=== PATIENT | female | born 1980 | race African-American/Black ===

== ENCOUNTER 2021-06-06 03:42 | Emergency (ER) | payer SELFPAY ==
[2021-06-06] MEDS ORDERED: Sodium Chloride 0.9% 2.5 ML Syringe FLUSH PRN (04:14)
[2021-06-06] MEDS ORDERED: Sodium Chloride 0.9% 10 ML Syringe FLUSH PRN (04:14)
[2021-06-06] MEDS ORDERED: Ondansetron 4 MG/2 ML SDV IVPUSH ONE (04:16)
[2021-06-06] MEDS ORDERED: Morphine 4 MG/ML VIAL IVPUSH ONE (04:16)
--- NOTE | 2021-06-06 04:38 | EDM.PDOC ---
ED HPI GENERAL MEDICAL PROBLEM - General Chief Complaint: Gastrointestinal Problem Stated Complaint: STOMACHE PAINS Time Seen by Provider: 06/06/21 03:52 - History of Present Illness INITIAL COMMENTS - FREE TEXT/NARRATIVE: 41-year-old female with no significant past medical history no prior surgical history is presenting with 1 week of gradually worsening abdominal pain. The pain started in the epigastrium and is now migrated to the right upper quadrant with some radiation to the right flank it is constant and currently 7 out of 10 it worsens with any p.o. intake. Few days ago it was associated with emesis however that is no longer the case however, she also was not had very much to eat over the last couple days. She reports chills but no documented fevers no diarrhea and no alleviating factors. She denies cough or shortness of breath. Right Abdominal Pain Score (Numeric/FACES): 7 - Related Data Allergies Allergy/AdvReac Type Severity Reaction Status Date / Time No Known Allergies Allergy Verified 06/06/21 03:51 Home Meds: Home Meds RX: Omeprazole 40 mg PO DAILY 14 Days #14 capsule. 06/06/21 [Rx] Sucralfate [Carafate] 1 gm PO TIDAC 14 Days #42 tablet 06/06/21 [Rx] Past Medical History - Past Health History Medical/Surgical History: Denies Medical/Surgical History Social & Family History - Tobacco Use Tobacco Use Status *Q: Never Tobacco User - Recreational Drug Use Recreational Drug Use: No ED ROS GENERAL - Review of Systems Review Of Systems: See Below Free Text/Narrative/Comment: General: No fever. Skin: No rash. Eyes: No vision problems. ENT: No sore throat. Neck: No neck stiffness. Respiratory: No shortness of breath. Cardiac: No chest pain. Gastrointestinal: Per HPI Urinary: No dysuria. Musculoskeletal: No myalgias/arthralgias. Neurologic: No headache. ED EXAM, GENERAL - Physical Exam Exam: See Below Free Text/Narrative:: General Appearance: No acute distress, appears comfortable Skin: No rash HEENT: Normocephalic/atraumatic, sclera anicteric, mucous membranes moist Neck: Normal range of motion Chest and Lungs: Bilateral breath sounds, clear to auscultation Cardiovascular: Regular rate and rhythm, no murmur Abdomen: Soft, right upper quadrant tenderness no guarding or rebound Back: Normal Musculoskeletal: No edema or tenderness Neurologic: Awake, alert, no obvious deficits, moving all extremities Psychiatric: Appropriate, cooperative Course - Vital Signs Last Recorded V/S: Last Vital Signs Temp 95.8 F L 06/06/21 03:51 Pulse 92 06/06/21 06:18 Resp 18 06/06/21 06:18 BP 105/59 L 06/06/21 06:18 Pulse Ox 96 06/06/21 06:18 - Orders/Labs/Meds Orders: Active Orders 24 hr Category Date Time Status Sodium Chloride 0.9% [Saline Flush] Med 06/06/21 04:14 Active 10 ml FLUSH ASDIRECTED PRN Sodium Chloride 0.9% [Saline Flush] Med 06/06/21 04:14 Active 2.5 ml FLUSH ASDIRECTED PRN Saline Lock Insert [OM.PC] Stat Oth 06/06/21 04:14 Ordered Medication Orders Sodium Chloride (Sodium Chloride 0.9% 10 Ml Syringe) 10 ml FLUSH ASDIRECTED PRN PRN Reason: Keep Vein Open Sodium Chloride (Sodium Chloride 0.9% 2.5 Ml Syringe) 2.5 ml FLUSH ASDIRECTED PRN PRN Reason: Keep Vein Open Labs: Laboratory Tests 06/06/21 06/06/21 06/06/21 Range/Units 04:00 04:00 04:00 WBC 6.91 (4.0-11.0) K/uL RBC 4.69 (4.30-5.90) M/uL Hgb 14.0 (12.0-16.0) g/dL Hct 41.2 (36.0-46.0) % MCV 87.8 (80.0-98.0) fL MCH 29.9 (27.0-32.0) pg MCHC 34.0 (31.0-37.0) g/dL RDW Std Deviation 44.0 (28.0-62.0) fl RDW Coeff of Ladarius 14 (11.0-15.0) % Plt Count 288 (150-400) K/uL MPV 10.80 (7.40-12.00) fL Neut % (Auto) 57.8 (48.0-80.0) % Lymph % (Auto) 31.7 (16.0-40.0) % [place] % (Auto) 8.8 (0.0-15.0) % Eos % (Auto) 1.4 (0.0-7.0) % Baso % (Auto) 0.3 (0.0-1.5) % Neut # (Auto) 4.0 (1.4-5.7) K/uL Lymph # (Auto) 2.2 (0.6-2.4) K/uL [place] # (Auto) 0.6 (0.0-0.8) K/uL Eos # (Auto) 0.1 (0.0-0.7) K/uL Baso # (Auto) 0.0 (0.0-0.1) K/uL Nucleated RBC % 0.0 /100WBC Nucleated RBCs # 0 K/uL Sodium 134 L (136-145) mmol/L Potassium 4.4 (3.5-5.1) mmol/L Chloride 98 (98-107) mmol/L Carbon Dioxide 26.2 (21.0-32.0) mmol/L BUN 5 L (7.0-18.0) mg/dL Creatinine 0.9 (0.6-1.0) mg/dL Est Cr Clr Drug Dosing 57.89 mL/min Estimated GFR (MDRD) > 60.0 ml/min Glucose 430 H (74-106) mg/dL Calcium 8.7 (8.5-10.1) mg/dL Total Bilirubin 0.5 (0.2-1.0) mg/dL AST 15 (15-37) IU/L ALT 15 (14-63) IU/L Alkaline Phosphatase 128 H (46-116) U/L Total Protein 8.4 H (6.4-8.2) g/dL Albumin 3.4 (3.4-5.0) g/dL Globulin 5.0 H (2.6-4.0) g/dL Albumin/Globulin Ratio 0.7 L (0.9-1.6) Lipase 92 (73-393) U/L Urine Color Urine Appearance Urine pH (5.0-8.0) Ur Specific Ferris (1.001-1.035) Urine Protein (NEGATIVE) mg/dL Urine Glucose (UA) (NEGATIVE) mg/dL Urine Ketones (NEGATIVE) mg/dL Urine Occult Blood (NEGATIVE) Urine Nitrite (NEGATIVE) Urine Bilirubin (NEGATIVE) Urine Urobilinogen (<2.0) EU/dL Ur Leukocyte Esterase (NEGATIVE) Urine RBC (0-2/HPF) Urine WBC (0-5/HPF) Ur Epithelial Cells (NONE-FEW) Urine Bacteria (NEGATIVE) Urine Yeast Urine HCG, Qual NEGATIVE (NEGATIVE) 06/06/21 Range/Units 04:00 WBC (4.0-11.0) K/uL RBC (4.30-5.90) M/uL Hgb (12.0-16.0) g/dL Hct (36.0-46.0) % MCV (80.0-98.0) fL MCH (27.0-32.0) pg MCHC (31.0-37.0) g/dL RDW Std Deviation (28.0-62.0) fl RDW Coeff of Ladarius (11.0-15.0) % Plt Count (150-400) K/uL MPV (7.40-12.00) fL Neut % (Auto) (48.0-80.0) % Lymph % (Auto) (16.0-40.0) % [place] % (Auto) (0.0-15.0) % Eos % (Auto) (0.0-7.0) % Baso % (Auto) (0.0-1.5) % Neut # (Auto) (1.4-5.7) K/uL Lymph # (Auto) (0.6-2.4) K/uL [place] # (Auto) (0.0-0.8) K/uL Eos # (Auto) (0.0-0.7) K/uL Baso # (Auto) (0.0-0.1) K/uL Nucleated RBC % /100WBC Nucleated RBCs # K/uL Sodium (136-145) mmol/L Potassium (3.5-5.1) mmol/L Chloride (98-107) mmol/L Carbon Dioxide (21.0-32.0) mmol/L BUN (7.0-18.0) mg/dL Creatinine (0.6-1.0) mg/dL Est Cr Clr Drug Dosing mL/min Estimated GFR (MDRD) ml/min Glucose (74-106) mg/dL Calcium (8.5-10.1) mg/dL Total Bilirubin (0.2-1.0) mg/dL AST (15-37) IU/L ALT (14-63) IU/L Alkaline Phosphatase (46-116) U/L Total Protein (6.4-8.2) g/dL Albumin (3.4-5.0) g/dL Globulin (2.6-4.0) g/dL Albumin/Globulin Ratio (0.9-1.6) Lipase (73-393) U/L Urine Color YELLOW Urine Appearance CLEAR Urine pH 6.0 (5.0-8.0) Ur Specific Ferr[place] 1.015 (1.001-1.035) Urine Protein NEGATIVE (NEGATIVE) mg/dL Urine Glucose (UA) >=1000 (NEGATIVE) mg/dL Urine Ketones 15 H (NEGATIVE) mg/dL Urine Occult Blood NEGATIVE (NEGATIVE) Urine Nitrite NEGATIVE (NEGATIVE) Urine Bilirubin NEGATIVE (NEGATIVE) Urine Urobilinogen 0.2 (<2.0) EU/dL Ur Leukocyte Esterase NEGATIVE (NEGATIVE) Urine RBC 0-1 (0-2/HPF) Urine WBC 1-3 (0-5/HPF) Ur Epithelial Cells MODERATE (NONE-FEW) Urine Bacteria OCCASIONAL (NEGATIVE) Urine Yeast FEW Urine HCG, Qual (NEGATIVE) Meds: Medications Generic Name Dose Route Start Last Admin Trade Name Freq PRN Reason Stop Dose Admin Sodium Chloride 10 ml 06/06/21 04:14 Sodium Chloride 0.9% 10 Ml Syringe FLUSH ASDIRECTED PRN Keep Vein Open Sodium Chloride 2.5 ml 06/06/21 04:14 Sodium Chloride 0.9% 2.5 Ml Syringe FLUSH ASDIRECTED PRN Keep Vein Open Discontinued Medications Generic Name Dose Route Start Last Admin Trade Name Freq PRN Reason Stop Dose Admin Iopamidol 100 ml 06/06/21 05:32 06/06/21 05:36 Iopamidol 755 Mg/Ml 100 Ml Bottle IVPUSH 06/06/21 05:33 100 ml ONETIME ONE Administration Morphine Sulfate 4 mg 06/06/21 04:16 06/06/21 04:24 Morphine 4 Mg/Ml Vial IVPUSH 06/06/21 04:17 4 mg ONETIME ONE Administration Ondansetron HCl 4 mg 06/06/21 04:16 06/06/21 04:24 Ondansetron 4 Mg/2 Ml Sdv IVPUSH 06/06/21 04:17 4 mg ONETIME ONE Administration Departure - Departure Time of Disposition: 06:42 Disposition: Home, Self-Care 01 Condition: Good Clinical Impression: Gastritis - Discharge Information *PRESCRIPTION DRUG MONITORING PROGRAM REVIEWED*: Not Applicable *COPY OF PRESCRIPTION DRUG MONITORING REPORT IN PATIENT SHOSHANA: Not Applicable Prescriptions: Sucralfate [Carafate] 1 gm PO TIDAC 14 Days #42 tablet RX: Omeprazole 40 mg PO DAILY 14 Days #14 capsule.dr Instructions: Gastritis, Adult, [id number] Forms: ED Department Discharge Additional Instructions: Your labs today showed no abnormalities with your liver your kidneys or any sign of infection. The ultrasound and CT were also normal. For this reason I believe your symptoms are most likely due to stomach irritation. For the next 2 weeks please take the omeprazole at least 30 to 40 minutes before breakfast every day. Please take the Carafate on an empty stomach immediately prior to any major meal. This should help give your stomach lining time to heal. I encourage you to follow-up with one of the primary clinics in [facility] both for this problem and to establish primary care. If your symptoms worsen or you develop any other new symptoms that concern you please call your doctor or return to the ER. [facility] - Primary Care [address] [place] [address] [place] [address] The following information is given to patients seen in the emergency department who are being discharged to home. This information is to outline your options for follow-up care. We provide all patients seen in our emergency department with a follow-up referral. The need for follow-up, as well as the timing and circumstances, are variable depending upon the specifics of your emergency department visit. If you don't have a primary care physician on staff, we will provide you with a referral. We always advise you to contact your personal physician following an emergency department visit to inform them of the circumstance of the visit and f or follow-up with them and/or the need for any referrals to a consulting specialist. The emergency department will also refer you to a specialist when appropriate. This referral assures that you have the opportunity for follow-up care with a specialist. All of these measure are taken in an effort to provide you with optimal care, which includes your follow-up. Under all circumstances we always encourage you to contact your private physician who remains a resource for coordinating your care. When calling for follow-up care, please make the office aware that this follow-up is from your recent emergency room visit. If for any reason you are refused follow-up, please contact the [facility] Emergency Department at and asked to speak to the emergency department charge nurse. Sepsis Event Note (ED) - Evaluation Sepsis Screening Result: No Definite Risk - Focused Exam Vital Signs: Vital Signs Temp Pulse Resp BP Pulse Ox 06/06/21 06:18 92 18 105/59 L 96 06/06/21 05:05 95 18 127/87 96 06/06/21 03:51 95.8 F L 111 H 16 125/83 94 L - My Orders Last 24 Hours: My Active Orders 06/06/21 04:14 Sodium Chloride 0.9% [Saline Flush] 10 ml FLUSH ASDIRECTED PRN Sodium Chloride 0.9% [Saline Flush] 2.5 ml FLUSH ASDIRECTED PRN Saline Lock Insert [OM.PC] Stat - Assessment/Plan Last 24 Hours: My Active Orders 06/06/21 04:14 Sodium Chloride 0.9% [Saline Flush] 10 ml FLUSH ASDIRECTED PRN Sodium Chloride 0.9% [Saline Flush] 2.5 ml FLUSH ASDIRECTED PRN Saline Lock Insert [OM.PC] Stat Assessment:: 41-year-old female presenting with signs and symptoms most concerning for biliary pathology. Tenderness and duration of symptoms constant nature of symptoms would make renal colic much less likely. Pneumonia considered but also felt less likely given the abdominal tenderness. Chest x-ray pending CBC CMP and lipase pending as well as right upper quadrant ultrasound. Morphine and Zofran given for symptoms and will reassess. 0515: Labs are relatively unremarkable chest x-ray relatively unremarkable ultrasound preliminarily negative and so CT abdomen pelvis added. 0641: Patient's labs are normal ultrasound normal as above CT also normal. Given this and the immediate postprandial nature of the patient symptoms I would favor gastritis or dyspepsia. Patient symptoms are improved at this time her abdominal exam is benign we will trial a course of omeprazole and Carafate return precautions discussed and understood she will follow-up in the primary care clinic.
[2021-06-06 04:43] LABS: BLOOD UREA NITROGEN,BUN 5 mg/dL (7.0-18.0); CARBON DIOXIDE,CO2 26.2 mmol/L (21.0-32.0); CHLORIDE,CL 98 mmol/L (98-107); GLUCOSE RANDOM 430 mg/dL (74-106); LIPASE 92 U/L (73-393); POTASSIUM,K 4.4 mmol/L (3.5-5.1); SODIUM,NA 134 mmol/L (136-145)
--- NOTE | 2021-06-06 05:29 | CR ---
INDICATION: Chest pain TECHNIQUE: Chest radiograph 1 view COMPARISON: None FINDINGS: The sensitivity and specificity of the exam are severely limited by the patient`s body habitus. Mediastinum: The mediastinum is normal in appearance. The heart silhouette is normal in size and morphology. Lung: Small lung volumes are present with bibasilar ground-glass atelectasis noted. No sign of pleural effusion seen. No pneumothorax is identified. Bone and Soft tissue: Unremarkable for age. IMPRESSION: 1. Small lung volumes are present with bibasilar ground-glass atelectasis noted. Dictated by Mahamed Dias MD @ 06/06/2021 5:27:30 AM Dictated by: Mahamed Dias MD @ 06/06/2021 05:27:33 (Electronically Signed)
[2021-06-06] MEDS ORDERED: Iopamidol 755 Mg/ML 100 ML Bottle IVPUSH ONE (05:32)
--- NOTE | 2021-06-06 05:37 | US ---
INDICATION: Right upper quadrant pain TECHNIQUE: Ultrasound abdomen limited. Sonographic images of the right upper quadrant were obtained using navarro-scale and color Doppler images. COMPARISON: None FINDINGS: Liver: The liver parenchyma is normal in echotexture. Gallbladder: No gallstones or sludge seen in the lumen. The gallbladder wall is normal in appearance. No pericholecystic fluid is present. No sonographic Hinsdale sign is present. Common bile duct: 5 mm. No intrahepatic biliary ductal dilatation seen. Pancreas: The visualized portions of the pancreatic head and body are normal in appearance. Right Kidney: 10.5 cm. No hydronephrosis or ureterectasis is seen. Vascular: The visualized abdominal aorta and IVC are unremarkable. The visualized portal vein is patent with normal anterograde flow. IMPRESSION: 1. The right upper quadrant is unremarkable in appearance. Dictated by Mahamed Dias MD @ 06/06/2021 5:35:43 AM Dictated by: Mahamed Dias MD @ 06/06/2021 05:35:47 (Electronically Signed)
--- NOTE | 2021-06-06 06:15 | CT ---
INDICATION: Right upper quadrant pain TECHNIQUE: CT Abdomen and pelvis with i.v. contrast. Coronal and sagittal reformats were obtained. CONTRAST: 100 mL Isovue 370 COMPARISON: None FINDINGS: Lower chest: Mild discoid atelectasis is present in both lung bases. Liver: Unremarkable. Spleen: Unremarkable. Pancreas: Unremarkable. Gallbladder: Unremarkable. Kidney: Unremarkable. No kidney or ureteral stones or obstruction seen. Adrenal: Unremarkable. Bowel: Unremarkable. The appendix is not well identified. Vascular: Unremarkable. Lymph: Unremarkable. Peritoneum: Unremarkable. No pneumoperitoneum is seen. No significant ascites is noted. Pelvis: There are multiple exophytic enhancing lesions extending from the uterus with the largest measuring 4 cm. These are most likely due to uterine fibroids. Soft tissue: Unremarkable. Bone: Unremarkable for age. IMPRESSION: 1. Unremarkable with no CT correlate for the patient`s symptoms seen. Dictated by Mahamed Dias MD @ 06/06/2021 6:13:40 AM Please note that all CT scans at this facility use dose modulation, iterative reconstruction, and/or weight-based dosing when appropriate to reduce radiation dose to as low as reasonably achievable. Dictated by: Mahamed Dias MD @ 06/06/2021 06:13:50 (Electronically Signed)
== END 2021-06-06 06:58 | disposition home or self-care (01) ==
LOC: MW.ED 03:42
DX: K29.70 Gastritis, unspecified, without bleeding (principal)
CPT/HCPCS: 36415; 71045; 74177; 76705; 80053; 81001; 81025; 83690; 85025; 96374; 96375; 99284; J2270; J2405; Q9967

== ENCOUNTER 2022-04-06 19:51 | Observation (INO) | payer BC ==
[2022-04-06] MEDS ORDERED: Lactated Ringers 1,000 ML IV ONE ×4 (20:14→22:58)
[2022-04-06 21:19] LABS: BLOOD UREA NITROGEN,BUN 10 mg/dL (7.0-18.0); CARBON DIOXIDE,CO2 22.8 mmol/L (21.0-32.0); CHLORIDE,CL 95 mmol/L (98-107); POTASSIUM,K 4.8 mmol/L (3.5-5.1); SODIUM,NA 129 mmol/L (136-145)
[2022-04-06 21:40] LABS: GLUCOSE RANDOM 752 mg/dL (74-106)
[2022-04-06 21:41] LABS: ESTIMATED GFR 58 mL/min (>60)
[2022-04-06 22:46] LABS: CARBON DIOXIDE,CO2 26.7 mmol/L (21.0-32.0); POTASSIUM,K 4.8 mmol/L (3.5-5.1)
[2022-04-06] MEDS ORDERED: 50% Dextrose in Water 50 ML Syringe IVPUSH PRN (22:58)
[2022-04-06] MEDS ORDERED: Insulin Regular, Human 100 Units/ML 10 ML Vial SUBCUT ONE (22:58)
[2022-04-06] MEDS ORDERED: Glucagon,Human Recombinant 1 MG Vial IM PRN (22:58)
[2022-04-07] MEDS ORDERED: 50% Dextrose in Water 50 ML Syringe IVPUSH PRN ×2 (01:10→06:48)
[2022-04-07] MEDS ORDERED: Glucagon,Human Recombinant 1 MG Vial IM PRN ×2 (01:10→06:48)
[2022-04-07] MEDS ORDERED: Insulin NPH/Insulin Regular,Human 70-30 100 Units/ML 10 ML Vial SUBCUT ONE (01:10)
[2022-04-07] MEDS ORDERED: Insulin Aspart 100 Units/ML 3 ML Pen SUBCUT ONE (02:22)
[2022-04-07] MEDS ORDERED: Ondansetron 4 MG/2 ML SDV IVPUSH PRN (06:49)
[2022-04-07] MEDS ORDERED: Insulin Aspart 100 Units/ML 3 ML Pen SUBCUT SCH (07:30)
[2022-04-07 07:58] LABS: CARBON DIOXIDE,CO2 25.9 mmol/L (21.0-32.0)
[2022-04-07] MEDS ORDERED: Lactated Ringers 1,000 ML IV SCH (08:15)
[2022-04-07] MEDS ORDERED: Lisinopril 5 MG Tab PO SCH (09:00)
== END 2022-04-07 12:40 | disposition home or self-care (01) ==
LOC: MW.ED 19:51 → MW.MS 04-07 01:09
PROVIDERS: ADMIT Internal Medicine; ATTEND Internal Medicine
DX: E11.65 Type 2 diabetes mellitus with hyperglycemia (principal); I10 Essential (primary) hypertension; Z20.822 Contact with and (suspected) exposure to COVID-19; Z79.899 Other long term (current) drug therapy
CPT/HCPCS: 36415; 70450; 80053; 80061; 81003; 82009; 82803; 82947; 83036; 83605; 83735; 84100; 84702; 85025; 85027; 87040; 87635; 96360; 96361; 99284; A9270; J1815; J7120; 82306; 82728; 83550; 84443; G0378; U0002

== ENCOUNTER 2022-07-05 07:34 | Emergency (ER) | payer BC ==
[2022-07-05] MEDS ORDERED: Sodium Chloride 0.9% 10 ML Syringe FLUSH PRN (08:28)
[2022-07-05] MEDS ORDERED: Sodium Chloride 0.9% 2.5 ML Syringe FLUSH PRN (08:28)
[2022-07-05 09:39] LABS: CORONAVIRUS COVID-19 NAA NEGATIVE (NEGATIVE); INFLUENZA A NAA NEGATIVE (NEGATIVE); INFLUENZA B NAA NEGATIVE (NEGATIVE)
[2022-07-05 09:45] LABS: CARBON DIOXIDE,CO2 27.9 mmol/L (21.0-32.0); POTASSIUM,K 3.7 mmol/L (3.5-5.1)
[2022-07-05] MEDS ORDERED: Ibuprofen 600 MG Tab PO ONE (10:51)
== END 2022-07-05 11:09 | disposition home or self-care (01) ==
LOC: MW.ED 07:34
DX: R00.2 Palpitations (principal); Z79.899 Other long term (current) drug therapy; Z79.4 Long term (current) use of insulin; Z20.822 Contact with and (suspected) exposure to COVID-19
CPT/HCPCS: 0240U; 36415; 71045; 80053; 80305; 84443; 84484; 85025; 99285; A9270; J3490